=== PATIENT | male | born 1990 | race Caucasian/White ===

== ENCOUNTER 2022-01-07 16:43 | Emergency (ER) | payer SELFPAY ==
[2022-01-07 17:28] VITALS: BP 117/72; PULSE 122; RESP 18; TEMP 37.4; O2SAT 98; BMI 32.5
[2022-01-07] MEDS: IBUPROFEN 200 MG TABLET 600 MG PO (17:41)
[2022-01-07 18:13] LABS: Strep A DNA Probe* NOT DETECTED (Not Detectd)
[2022-01-07 18:26] LABS: PCR FLU A Negative PCR FLU A (Negative); PCR FLU B Negative PCR FLU B (Negative); PCR RSV Negative PCR RSV (Negative)
[2022-01-07 18:30] LABS: SARS PCR* Negative SARS-CoV-2 (Negative)
--- NOTE | 2022-01-07 19:26 | ED_ITS ---
HPI - General Adult General Time Seen by Provider: 19:27 Date Seen: 01/07/22 Chief complaint: Fever Stated complaint: Trouble Breathing Fever Source: patient, RN notes reviewed and old records reviewed Mode of arrival: ambulatory Limitations: no limitations History of Present Illness HPI narrative: Patient is a 31-year-old male with a history of asthma as a child who comes to the emergency room with flank pain and persistent cough. Patient had the onset of COVID symptoms exactly 8 days ago and tested positive at that time. He notes that his sore throat has improved from initial but today he started running a temp up to 102 associated with bilateral flank pain as well as cough with production. Patient notes that sometimes his sputum has a slightly pinkish grant and often times it is green. Patient notes that he started having COVID symptoms on WednesdayDecember 29 and tested positive. He was actually feeling a little bit better until last night when he started to experience bilateral flank pain. He rated the pain a 9/10 but notes since receiving ibuprofen while waiting here the pain has started to come down. Patient notes that his breathing has been okay although he still has a cough. He also has some loose stools but has not taken any medications. He denies headache. His at has been able to eat and drink but has no appetite. Patient notes the pain in his flanks increase with deep inspiration. He denies lower extremity edema and has not had a history of DVT. Related Data Previous Rx's Medication Instructions Recorded amoxicillin 875 mg-potassium 1 tab PO BID #10 tabs 01/07/22 clavulanate 125 mg tablet azithromycin 250 mg tablet 250 mg PO DAILY #4 tabs 01/07/22 (Zithromax) Allergies Allergy/AdvReac Type Severity Reaction Status Date / Time No Known Drug Allergies Allergy Verified 01/07/22 21:13 Review of Systems Status of ROS: Reports: 10 or more systems reviewed and unremarkable except as noted in History and below Const: Reports: fever (Up to 102 today) and malaise; Denies: chills Eyes: Denies: change in vision ENMT: Reports: throat pain (Initially but now improved) Cardio: Reports: chest pain; Denies: shortness of breath with exertion Resp: Reports: cough and change in phlegm color; Denies: shortness of breath or wheezing GI: Reports: nausea and diarrhea; Denies: abdominal pain or vomiting : Denies: painful urination or urinary frequency Musculo: Reports: back pain (Bilateral flank); Denies: extremity swelling Neuro: Denies: headache or weakness in extremities Endo: Denies: excessive urination Allergy/Immuno: Denies: wheezing PFSH PFS Medical History No significant medical problems Surgical History No significant past surgical history Social History Smoking Status: Never smoker Do you use any of these nicotine containing products: None Second hand tobacco smoke exposure: No How often do you have a drink containing alcohol: never How often do you have six or more drinks on one occasion: Never AUDIT-C Alcohol total score: 0 Non-prescribed substance use: denies use Exam Narrative: Exam Narrative: Patient is a very pleasant 31-year-old male. He is nontoxic in appearance. His eyes are clear. TMs without erythema. Neck is supple without lymphadenopathy. Oral cavity with moist mucous membranes. No significant erythema in posterior oropharynx. Heart is with a tachycardic rate but normal rhythm. Lungs with diminished breath sounds in the bases but no significant crackles. Bilateral flank pain. The pain worsens with the deep inspiration. Abdomen soft. Lower extremities without edema or calf tenderness. Const: Vital Signs, click to edit/add: Vital Signs - 24 hr 01/07/22 17:28 01/07/22 19:50 01/07/22 19:56 Temperature 99.3 F 99.3 F 99.3 F Pulse Rate [Right Pulse Oximeter] 122 H 91 92 Respiratory Rate 18 18 18 Blood Pressure [Ri ght Arm] 110/78 Blood Pressure [Ri ght Upper Arm] 117/72 108/70 Pulse Oximetry 98 98 98 Oxygen Delivery Me thod Room Air Room Air Room Air 01/07/22 20:06 01/07/22 22:36 01/07/22 19:50 Temperature 99.3 F 98.6 F Pulse Rate [Right Pulse Oximeter] 94 Respiratory Rate 18 Blood Pressure [Ri ght Arm] Blood Pressure [Ri ght Upper Arm] 115/78 Pulse Oximetry 98 97 Oxygen Delivery Me thod Room Air Course Course Hospital Course: At this time patient reports testing positive for COVID 8 days ago. He notes the onset of flank pain last night. He has had ongoing diarrhea. He notes now he is coughing up blood-tinged and green sputum as well. He has a new onset of fever to 102 today. Will obtain CBC, comprehensive, CRP, amylase, lipase, urinalysis. Reevaluation(s) Reevaluation #1: Patient is noted [place] [address]. Will add blood culture to blood work. Creatinine reassuring at 1.3. Giving 2 L of normal saline at this time. Will do PE study abdomen and pelvis CTs with contrast. Reevaluation #2: Patient appears to be feeling better at this time. Vital Signs Vital signs: Initial Vital Signs Temperature 99.3 F 01/07/22 17:28 Temperature Source Temporal Artery Scan 01/07/22 17:28 Pulse Rate 122 H 01/07/22 17:28 Respiratory Rate 18 01/07/22 17:28 Blood Pressure 117/72 01/07/22 17:28 Blood Pressure Mean 87 01/07/22 17:28 Blood Pressure Position Sitting 01/07/22 17:28 Pulse Oximetry 98 01/07/22 17:28 Oxygen Delivery Method 01/07/22 17:28 Vital Signs Temperature 99.3 F 01/07/22 17:28 Pulse Rate 122 H 01/07/22 17:28 Respiratory Rate 18 01/07/22 17:28 Blood Pressure 117/72 01/07/22 17:28 Pulse Oximetry 98 01/07/22 17:28 Oxygen Delivery Method 01/07/22 17:28 Temperature 98.6 F 01/07/22 22:36 Pulse Rate 94 01/07/22 22:36 Respiratory Rate 18 01/07/22 22:36 Blood Pressure 115/78 01/07/22 22:36 Pulse Oximetry 98 01/07/22 22:36 Oxygen Delivery Method 01/07/22 22:36 Medical Decision Making MDM Narrative Medical decision making narrative: 1. COVID-patient tested positive 8 days ago. COVID negative here in the emergency room. O2 sats reassuring but patient is tachycardic and thus needed to rule out evidence of a PE. Chest CT with IV contrast shows no evidence of PE but does show a left lower lobe infiltrate. 2. Left lower lobe pneumonia-patient has [facility] [place] with a CRP elevated at 19.1. Treated with Rocephin 1 g IV and Zithromax 500 mg p.o.. Will discharge home and tomorrow's medications will be Augmentin 875 p.o. b.i.d. for 7 days and Zithromax 250 mg daily for 4 days. 2. Flank pain-elevated amylase with associated with diarrhea. Urine does have white cells noted. No evidence of abnormality on CT. Kidney function within normal limits 3. Disposition- at this time patient does not appear to meet septic criteria but certainly a white count that high is concerning. I would like patient to monitor and return to the emergency room for any worsening symptoms especially vomiting or increasing pain. Patient may continue Tylenol or ibuprofen as needed for discomfort. Lab Data Lab results reviewed: Yes I reviewed the patient's lab results Labs: Lab Results 01/07/22 01/07/22 01/07/22 Range/Units 17:42 17:42 19:40 WBC 26.32 H* (4.50-11.00) K/uL RBC 5.26 (4.30-5.90) m/uL Hgb 15.4 (13.5-17.5) gm/dL Hct 44.9 (37.0-53.0) % MCV 85 (80-100) fL MCH 29 (26-34) pg MCHC 34 (32-36) gm/dL RDW Coeff of Nick 13.0 (11.5-15.5) % Plt Count 234 (140-440) K/uL Neut % (Auto) 84.4 H (42.0-72.0) % Lymph % (Auto) 9.4 L (20-44) % [place] % (Auto) 5.7 (0.0-11.0) % Eos % (Auto) 0.1 (0.0-7.0) % Baso % (Auto) 0.2 (0.0-3.0) % Neut # (Auto) 22.20 H (1.7-7.0) K/uL Lymph # (Auto) 2.50 (0.90-2.90) K/uL [place] # (Auto) 1.50 H (0.00-0.90) K/UL Eos # (Auto) 0.00 (0.00-0.50) K/uL Baso # (Auto) 0.10 (0.00-0.30) K/uL Abs Immat Gran (auto) 0.05 (0.00-0.30) K/uL Imm/Tot Granulo (auto) Not Reportable Sodium (135-149) mmol/L Potassium (3.6-5.1) mmol/L Chloride (96-114) mmol/L Carbon Dioxide (20-32) mmol/L BUN (5-24) mg/dL Creatinine (0.5-1.5) mg/dL Estimated Creat Clear Estimated GFR ml/min Glucose (60-115) mg/dL Calcium (8.4-10.6) mg/dL Total Bilirubin (0.1-1.5) mg/dL AST (12-35) U/L ALT (4-50) U/L Alkaline Phosphatase (40-150) U/L C-Reactive Protein (0.5-1.0) mg/dL Total Protein (6.0-8.3) g/dL Albumin (3.3-5.0) g/dL Amylase (18-89) U/L Lipase (23-300) U/L Urine Color (Yellow) Urine Appearance (Clear) Urine pH (5.0-8.5) Ur Specific [place] (1.000-1.030) Urine Protein (Negative) Urine Glucose (UA) (Negative) Urine Ketones (Negative) Urine Blood (Negative) Urine Nitrite (Negative) Urine Bilirubin (Negative) Urine Urobilinogen (0.2-1.0) Ur Leukocyte Esterase (Negative) Urine RBC (0-2) Urine WBC (0-5) Ur Squamous Epith Cells (None-Few) Urine Bacteria (None) SARS-CoV-2 (PCR) Negative SARS-CoV-2 (Negative) Influenza Type A (PCR) Negative PCR FLU A (Negative) Influenza Type B (PCR) Negative PCR FLU B (Negative) RSV (PCR) Negative PCR RSV (Negative) Group A Strep DNA NOT DETECTED (Not Detectd) 01/07/22 01/07/22 Range/Units 19:40 19:50 WBC (4.50-11.00) K/uL RBC (4.30-5.90) m/uL Hgb (13.5-17.5) gm/dL Hct (37.0-53.0) % MCV (80-100) fL MCH (26-34) pg MCHC (32-36) gm/dL RDW Coeff of Nick (11.5-15.5) % Plt Count (140-440) K/uL Neut % (Auto) (42.0-72.0) % Lymph % (Auto) (20-44) % [place] % (Auto) (0.0-11.0) % Eos % (Auto) (0.0-7.0) % Baso % (Auto) (0.0-3.0) % Neut # (Auto) (1.7-7.0) K/uL Lymph # (Auto) (0.90-2.90) K/uL [place] # (Auto) (0.00-0.90) K/UL Eos # (Auto) (0.00-0.50) K/uL Baso # (Auto) (0.00-0.30) K/uL Abs Immat Gran (auto) (0.00-0.30) K/uL Imm/Tot Granulo (auto) Sodium 135 (135-149) mmol/L Potassium 3.8 (3.6-5.1) mmol/L Chloride 102 (96-114) mmol/L Carbon Dioxide 20 (20-32) mmol/L BUN 15 (5-24) mg/dL Creatinine 1.3 (0.5-1.5) mg/dL Estimated Creat Clear 97.50 Estimated GFR 75 ml/min Glucose 123 H (60-115) mg/dL Calcium 9.3 (8.4-10.6) mg/dL Total Bilirubin 1.4 (0.1-1.5) mg/dL AST 26 (12-35) U/L ALT 58 H (4-50) U/L Alkaline Phosphatase 81 (40-150) U/L C-Reactive Protein 19.1 H (0.5-1.0) mg/dL Total Protein 8.4 H (6.0-8.3) g/dL Albumin 4.9 (3.3-5.0) g/dL Amylase 124 H (18-89) U/L Lipase 131 (23-300) U/L Urine Color [place] A (Yellow) Urine Appearance Cloudy A (Clear) Urine pH 5.5 (5.0-8.5) Ur Specific [place] 1.025 (1.000-1.030) Urine Protein 2+ A (Negative) Urine Glucose (UA) Negative (Negative) Urine Ketones Trace A (Negative) Urine Blood Trace-lysed A (Negative) Urine Nitrite Negative (Negative) Urine Bilirubin 1+ A (Negative) Urine Urobilinogen 1.0 (0.2-1.0) Ur Leukocyte Esterase Trace A (Negative) Urine RBC 0-2 (0-2) Urine WBC 5-10 A (0-5) Ur Squamous Epith Cells Few (None-Few) Urine Bacteria Few A (None) SARS-CoV-2 (PCR) (Negative) Influenza Type A (PCR) (Negative) Influenza Type B (PCR) (Negative) RSV (PCR) (Negative) Group A Strep DNA (Not Detectd) Imaging Data CT Chest/Ab/Pelvis: Attestation: I have reviewed the pertinent imaging results. My impression: Left lower lobe pneumonia. Increased fluid in small bowel with few air-fluid levels but no signs of obstruction. Radiologist's impression: Left lower lobe pneumonia. Normal abdominal CT. No evidence of PE Discharge Plan Discharge Clinical Impression: COVID, Pneumonia Patient Disposition: Home w/ Parent or Adult Condition: Improved Additional Instructions: Continue antibiotic Augmentin and Zithromax tomorrow. Augmentin will be twice for 7 days. Zithromax will be once a day for 4 days only. Ibuprofen or Tylenol as needed for discomfort. Recommend pushing fluids and rest. Return to the emergency room for worsening symptoms and as needed. Prescriptions: New amoxicillin-pot clavulanate 875-125 mg tablet 1 tab PO BID Qty: 10 0RF azithromycin [Zithromax] 250 mg tablet 250 mg PO DAILY Qty: 4 0RF Taper: Z-KEN 500 mg Q24H for 1 Day and 0 Hour 250 mg Q24H for 4 Days and 0 Hour Rx Instructions: 250 mg orally x4 days. Follow Up/Referrals: Provider,Not a Local [Primary Care Provider] - Stand Alone Forms: [facility] Info Instructions
--- NOTE | 2022-01-07 19:32 | ED.NURSE ---
Exam per Dr. Madrigal
[2022-01-07] MEDS: 0.9 % SODIUM CHLORIDE 1000 ml 1,000 ML IV ×2 (19:42→21:56)
[2022-01-07 19:50] VITALS: BP 110/78; PULSE 91; RESP 18; TEMP 37.4; O2SAT 97; O2SAT 98
[2022-01-07 19:55] LABS: Basophils Percent Auto 0.2 % (0.0-3.0); Eosinophils Percent Auto 0.1 % (0.0-7.0); Hematocrit 44.9 % (37.0-53.0); Hemoglobin* 15.4 gm/dL (13.5-17.5); Immature Granulocytes Abs Auto 0.05 K/uL (0.00-0.30); Lymphocytes Percent Auto 9.4 % (20-44); Mean Corpuscular HGB Conc 34 gm/dL (32-36); Mean Corpuscular Hemoglobin 29 pg (26-34); Mean Corpuscular Volume 85 fL (80-100); Monocytes Percent Auto 5.7 % (0.0-11.0); Neutrophils Percent Auto 84.4 % (42.0-72.0); Platelet Count* 234 K/uL (140-440); Red Blood Count 5.26 m/uL (4.30-5.90)
[2022-01-07 19:56] VITALS: BP 108/70; PULSE 92; RESP 18; TEMP 37.4; O2SAT 98
[2022-01-07 19:56] LABS: Appearance Urine Cloudy (Clear); Bilirubin Urine 1+ (Negative); Blood Urine Trace-lysed (Negative); Color Urine Orange (Yellow); Glucose Urine Negative (Negative); Ketones Urine Trace (Negative); Leukocyte Esterase Urine Trace (Negative); Nitrite Urine Negative (Negative); Protein Urine 2+ (Negative); Specific Gravity Urine 1.025 (1.000-1.030); pH Urine 5.5 (5.0-8.5)
[2022-01-07 20:06] VITALS: TEMP 37.4
[2022-01-07 20:10] LABS: Slide Review Reflex No
[2022-01-07 20:11] LABS: White Blood Count* 26.32 K/uL (4.50-11.00)
[2022-01-07 20:13] LABS: Albumin* 4.9 g/dL (3.3-5.0); Chloride* 102 mmol/L (96-114)
[2022-01-07 20:14] LABS: Potassium* 3.8 mmol/L (3.6-5.1); Sodium* 135 mmol/L (135-149)
[2022-01-07 20:15] LABS: Amylase* 124 U/L (18-89)
--- NOTE | 2022-01-07 20:15 | ED.NURSE ---
MD Madrigal updated on critical WBC
[2022-01-07 20:16] LABS: Alkaline Phosphatase* 81 U/L (40-150); Aspartate Amino Transferase* 26 U/L (12-35); Bilirubin Total* 1.4 mg/dL (0.1-1.5); Blood Urea Nitrogen* 15 mg/dL (5-24); Carbon Dioxide* 20 mmol/L (20-32); Creatinine* 1.3 mg/dL (0.5-1.5); Estimated Glomerular Filt Rate 75 ml/min; Glucose* 123 mg/dL (60-115); Lipase* 131 U/L (23-300); Total Protein* 8.4 g/dL (6.0-8.3)
[2022-01-07 20:17] LABS: Alanine Aminotransferase* 58 U/L (4-50); Calcium* 9.3 mg/dL (8.4-10.6)
[2022-01-07 20:25] LABS: Bacteria Urine Few; RBC Urine 0-2 (0-2); Squamous Epithelial Cell Urine Few (None-Few)
--- NOTE | 2022-01-07 20:28 | ED.NURSE ---
critical lab: wbc 26.32. Dr. Madrigal notified.
[2022-01-07 20:56] LABS: C Reactive Protein* 19.1 mg/dL (0.5-1.0)
--- NOTE | 2022-01-07 20:56 | CRLHL7_ITS ---
For Patients: As a result of the Century Cures Act, medical imaging exams and procedure reports are released immediately into your electronic medical record. You may view this report before your referring provider. If you have questions, please contact your health care provider. INDICATION: Chest pain. Back pain. Leukocytosis. TECHNIQUE: CT chest PE, abdomen and pelvis acquired with 95 cc Isovue 370 IV contrast. COMPARISON: None. FINDINGS: CHEST: Cardiovascular structures: Heart size is normal. Thoracic aorta and main pulmonary artery are normal in caliber. No sign of pulmonary embolism. Mediastinum and filipe: No mass or adenopathy. Lungs and pleura: Left lower lobe patchy consolidation. No pleural effusion. No pneumothorax. Chest wall and axilla: No mass or adenopathy. Bilateral gynecomastia. Bones: No suspicious bone lesions. Unremarkable for age. ABDOMEN AND PELVIS: Liver: Severe hepatic steatosis. No suspicious masses. Gallbladder and bile ducts: Unremarkable. Pancreas: Unremarkable. Spleen: Unremarkable. Adrenal glands: Unremarkable. Kidneys: Unremarkable. GI tract: Unremarkable. Vascular structures: Unremarkable. Lymph nodes: Unremarkable. Miscellaneous: Unremarkable. No free air or significant free fluid. Pelvic Organs: Unremarkable. Bones: No suspicious bone lesions. Unremarkable for age. IMPRESSION: 1. No evidence of pulmonary embolism. 2. Left lower lobe pneumonia. 3. Hepatic steatosis. Please note that all CT scans at this facility use dose modulation, iterative reconstruction, and/or weight-based dosing when appropriate to reduce radiation dose to as low as reasonably achievable. Dictated by Srikanth Rodriguez MD @ 01/07/2022 9:50:07 PM (Electronically Signed)
[2022-01-07] MEDS: AZITHROMYCIN 250 MG TABLET 500 MG PO (22:14)
[2022-01-07] MEDS: cefTRIAXone 1 GM in 0.9 % SODIUM CHLORIDE Mini-bag 100 ML IVPB (22:14)
[2022-01-07 22:36] VITALS: BP 115/78; PULSE 94; RESP 18; TEMP 37; O2SAT 98
[2022-01-07 23:11] VITALS: BP 115/78; PULSE 94; RESP 18; TEMP 37
== END 2022-01-07 23:11 | disposition home or self-care (01) ==
PROVIDERS: Emergency Provider Family Medicine
DX: U07.1 COVID-19 (principal); J18.9 Pneumonia, unspecified organism
CPT/HCPCS: 36415; 71260; 74177; 80053; 81001; 82150; 83690; 85025; 86140; 87040; 87086; 87502; 87634; 87635; 87651; 94761; 96365; 99285; A9270; J0696; Q9967